=== PATIENT | male | born 1945 | race Caucasian/White ===

== ENCOUNTER → 2016-09-22 | Outpatient (CLI) | payer OTHER ==
[~2016-09-22] MED LIST: ASPI-428 PO; GLIM1TAB2 PO; LPT10 PO; NITR0.4D6; PRTI40 PO; SYMIN160 INH; TPRSR/25 PO; albuterol INH; metformin PO
== END | disposition home or self-care (01) ==
LOC: C.LABSPEC 09:46
PROVIDERS: ATTEND Internal Medicine Hematology & Oncology
DX: E03.9 Hypothyroidism, unspecified (principal); C82.90 Follicular lymphoma, unspecified, unspecified site

== ENCOUNTER → 2017-08-07 | Outpatient (CLI) | payer OTHER ==
[2017-08-07 11:21] LABS: HEMOGLOBIN A1C 10.1 % (4.5-5.6)
== END | disposition home or self-care (01) ==
LOC: C.LAB 13:40
PROVIDERS: ATTEND Family Medicine
DX: E78.5 Hyperlipidemia, unspecified (principal); E03.9 Hypothyroidism, unspecified; E11.9 Type 2 diabetes mellitus without complications

== ENCOUNTER → 2018-02-16 | Outpatient (CLI) | payer OTHER ==
[~2018-02-16] MED LIST changes: +OPTIRAY 320 IV PRN
--- NOTE | 2018-02-16 14:32 | DIAGNOSTIC IMAGING REPORT ---
ABD/PELVIS IV AND ORAL CONT CT DOSE: HISTORY: Lymphoma NON HODGKINS LYMPHOMA TECHNIQUE: Multiaxial CT images of the abdomen and pelvis were performed following the use of intravenous and oral contrast. A dose lowering technique was utilized adhering to the principles of ALARA. COMPARISON STUDY: 10/03/2015 FINDINGS: Lung bases are clear. Liver spleen and pancreas remain unremarkable. Spleen remains mildly enlarged and is unchanged. Mild cortical scarring of the kidneys. No evidence for renal hydronephrosis. No significant abdominal or retroperitoneal adenopathy. Bladder is midline. IMPRESSION: No significant abnormality identified within the abdomen or pelvis. Mild stable splenomegaly. Scattered colonic diverticulosis with no evidence for diverticulitis. The above report was generated using voice recognition software. It may contain grammatical, syntax or spelling errors. Electronically signed by: Renato Bustillo M.D. 02/16/2018 2:31 PM Dictated Date/Time: 02/16/2018 2:18 PM
--- NOTE | 2018-02-16 14:35 | DIAGNOSTIC IMAGING REPORT ---
CT OF THE CHEST WITH IV CONTRAST CLINICAL HISTORY: Non-Hodgkin's lymphoma. COMPARISON STUDY: Chest CT October 03, 2015. TECHNIQUE: Following IV administration of 90 mL of Optiray-320, helical axial images of the chest were obtained. Sagittal and coronal reconstructions were viewed as well as maximal intensity projections on an independent 3-D workstation. A dose lowering technique was utilized adhering to the principles of ALARA. CT DOSE: 1988.12 mGy.cm FINDINGS: No enlarged axillary, mediastinal or hilar lymph nodes are present. The heart is mildly enlarged. Extensive coronary artery calcification is noted. There are median sternotomy wires and postoperative findings consistent with bypass grafting. There is no pericardial effusion. There is no pneumothorax or pleural effusion. No suspicious pulmonary nodules are noted. Central airways are patent. A lucent lesion with sclerotic margin within the left aspect of the T12 vertebral body is unchanged and CT of October 03, 2015. This is either benign or reflects a stable treated lesion. A few hypodense splenic lesions and mild splenomegaly are unchanged since prior exam of October 03, 2015. The abdomen and pelvis will be reported separately. IMPRESSION: 1. No thoracic lymphadenopathy. 2. Stable mild splenomegaly and several hypodense splenic lesions since CT of October 03, 2015. Electronically signed by: Cali Nolasco M.D. 02/16/2018 2:33 PM Dictated Date/Time: 02/16/2018 2:23 PM
== END | disposition home or self-care (01) ==
LOC: C.CTS 12:04
PROVIDERS: ATTEND Internal Medicine Hematology & Oncology
DX: C82.43 Follicular lymphoma grade IIIb, intra-abdominal lymph nodes (principal)